=== PATIENT | male | born 1955 | race Caucasian/White ===

== ENCOUNTER 2020-05-20 16:17 | Outpatient (RCR) | payer OTHER, SELFPAY | END 2020-07-13 23:59 | LOC: IMMUN 16:17 | PROVIDERS: Referring Provider Family Medicine; Visit Provider Family Medicine | DX: Z23 Encounter for immunization (principal) | CPT/HCPCS: 0001A; 0002A; 91300 ==

== ENCOUNTER → 2023-11-01 | Outpatient (CLI) | payer OTHER, SELFPAY ==
--- NOTE | 2023-11-01 | PROSBIL_PTH ---
PATIENT: BLANCA ONEAL LOC: [facility] U#:[id number] AGE/SX: 68/M ROOM: RE11/01/[address]: Dr. Amol Cuba MD : 1955 BED: DIS: 11/01/2023 SPEC #: [id number] RECD: 11/02/23 11:44 STATUS: STEFANO REGerda #: [id number] AMY: 11/01/23 00:[address]: Amol Cuba DEPT: SURGICAL PATHOLOGY RECD BY: Esa Olmedo ENTERED: 11/02/23 11:45 SP TYPE: PROST BX OT DR: Gita Primary Care Phys Tissues: A - PROSTATE RIGHT B - PROSTATE RIGHT C - PROSTATE RIGHT D - PROSTATE LEFT E - PROSTATE LEFT F - PROSTATE LEFT Procedures: PROSTATE BX HEADER OPERATION: Prostate biopsy PRE-OP DIAGNOSIS: Elevated PSA TISSUE SUBMITTED: A - Right apex, B - Right mid, C - Right base, D - Left apex, E - Left mid, F - Left base MICROSCOPIC DIAGNOSIS A. Right prostate, apex, core biopsy: Adenocarcinoma. Seeley grade: 5+3 (8) Cores involved: 2/2 Tissue involved: 95 % Greatest tumor length: 4.5 millimeters Perineural invasion: Present B. Right prostate, mid, core biopsy: Focal atypical small acinar proliferation (ULYSSES). See comment. C. Right prostate, base, core biopsy: Glandular atrophy and mild chronic inflammation. D. Left prostate, apex, core biopsy: Adenocarcinoma. Seeley grade: 5+3 (8) Cores involved: / Tissue involved: 60% Greatest tumor length: 3.0 millimeters E. Left prostate, mid, core biopsy: Adenocarcinoma. Dwain grade: 4+3 (7) Cores involved: / Tissue involved: 85% Greatest tumor length: 6.5 millimeters Perineural invasion: Present F. Left prostate, base, core biopsy: Adenocarcinoma. Seeley grade: 4+3 (7) Cores involved: / Tissue involved: 75% Greatest tumor length: 5.2 millimeters AM. 11/05/2023 COMMENT B. Immunohistochemistry ([id number]) supports the above diagnosis. Case has been reviewed in consultation with Dr. Montes who concurs with the above diagnosis. IDC:[email or web address] MICROSCOPIC DESCRIPTION Slides are reviewed. GROSS DESCRIPTION A - Received is one container designated prostate, right apex. The specimen consists of one elongated fragments of light amanda-white soft tissue measuring 1.2 cm in length and 0.1 cm in diameter. The specimen is totally submitted in one cassette. B - Received is one container designated prostate, right mid. The specimen consists of one elongated fragments of light amanda-white soft tissue measuring 0.8 cm in length and 0.1 cm in diameter. The specimen is totally submitted in one cassette. C - Received is one container designated prostate, right base. The specimen consists of one elongated fragments of light amanda-white soft tissue measuring 0.8 cm in length and 0.1 cm in diameter. The specimen is totally submitted in one cassette. D - Received is one container designated prostate, left apex. The specimen consists of one elongated fragments of light amanda-white soft tissue measuring 1.5 cm in length and 0.1 cm in diameter. The specimen is totally submitted in one cassette. E - Received is one container designated prostate, left mid. The specimen consists of one elongated fragments of light amanda-white soft tissue measuring 0.9 cm in length and 0.1 cm in diameter. The specimen is totally submitted in one cassette. F - Received is one container designated prostate, left base. The specimen consists of one elongated fragments of light amanda-white soft tissue measuring 0.7 cm in length and 0.1 cm in diameter. The specimen is totally submitted in one cassette. / 11/02/2023 TC:0 CPT: 44808 x6
--- NOTE | 2023-11-01 | IMM_PTH ---
PATIENT: BLANCA ONEAL LOC: [facility] U#:[id number] AGE/SX: 68/M ROOM: RE11/01/[address]: Dr. Amol Cuba MD : 1955 BED: DIS: 11/01/2023 SPEC #: [id number] RECD: 11/06/23 14:34 STATUS: STEFANO REQ #: [id number] AMY: 11/01/23 00:[address]: Amol Cuba DEPT: IMMUNOHISTOCHEMISTRY RECD BY: Ryan Pope ENTERED: 11/06/23 14:35 SP TYPE: IMMUNO OTHR DR: No Primary Care Phys Tissues: B - PROSTATE RIGHT Procedures: 34BE12 (add) P40 (initial) PHYSICIAN & INSTITUTION [place] [id number] SPECIMEN INFORMATION: Tissue Source: B- Prostate mid Clinical Info: Elevated PSA Specimen Number: [id number] CPT code: 15256,44432 METHODOLOGY: Deparaffinized sections of prefer/formalin-fixed tissue or PAP/DQ stained slides are incubated with monoclonal/polyclonal antibodies/oligonucleotide probes. Localization is made via biotin free immunoperoxidase method. Appropriate controls are performed and reacted as expected. Results on target cell population are indicated in the following table: RESULTS: ANTIBODY / CLONE RESULT Block B P40 (BC28) negative 34BE12 (34BE12) negative These tests were developed and their performance characteristics determined by [facility]. They may not have been cleared or approved by the U.[place]. Food and Drug Administration. The FDA has determined that such clearance or approval is not necessary. The above immunohistochemical/dualISH markers are ordered and reviewed by the Pathologist. INTERPRETATION: BAtul Prostate, right mid, core biopsy: Atypical small acinar proliferation. AM.mr 11/07/2023
== END | disposition home or self-care (01) ==
PROVIDERS: Referring Provider Urology; Visit Provider Urology
DX: C61 Malignant neoplasm of prostate (principal); R97.20 Elevated prostate specific antigen [PSA]
CPT/HCPCS: 88305; 88341; 88342; G0416

== ENCOUNTER → 2023-11-28 | Outpatient (CLI) | payer OTHER, SELFPAY ==
--- NOTE | 2023-11-28 19:04 | CT_ITS ---
STUDY: CT ABDOMEN AND PELVIS WITH CONTRAST REASON FOR EXAM: Male, 68 years old. New diagnosis of prostate cancer. RADIATION DOSAGE (If Supplied By Facility): CTDIvol = ( 18.78 ) mGy, DLP = ( 971.30 ) mGycm TECHNIQUE: Transaxial images were obtained from the dome of the diaphragm to the symphysis pubis without oral contrast. IV 100mL Isovue-370 was administered. Sagittal and coronal images were reconstructed. Individualized dose optimization techniques were used for this CT. COMPARISON: None. FINDINGS: The visualized lung bases are unremarkable. The visualized portions of the heart are within normal limits. Normal liver. Scattered subcentimeters cysts are seen in the liver. Normal gallbladder and extrahepatic biliary system. Normal spleen. Normal pancreas. Normal bilateral adrenal glands. Normal right kidney. Normal left kidney. There is a small hiatal hernia. Normal small intestine. There are scattered colonic diverticula consistent with diverticulosis. The appendix is visualized and appears normal. Normal abdominal aorta. Normal inferior vena cava. Normal retroperitoneum. Normal urinary bladder. Heterogeneous appearance of the prostate. Small bilateral inguinal hernias containing fat slightly larger on the left side. There are mild degenerative changes of the visualized lumbar spine. CT/Abdomen/Pelvis WITH Contrast IMPRESSION: Heterogeneous appearance of the prostate. Scattered subcentimeter hepatic cysts. Sigmoid diverticulosis. Small bilateral inguinal hernias containing fat more prominent on the left side. Electronically Signed: Navid Wetzel MD at 13:59 EDT ,
[2023-11-28 19:26] LABS: CREATININE FINGERSTICK < 1.0 mg/dL (0.70-1.30); EGFR FINGERSTICK > 60.0000 mL/min (>60)
== END | disposition home or self-care (01) ==
PROVIDERS: Referring Provider Urology; Visit Provider Urology
DX: C61 Malignant neoplasm of prostate (principal)
CPT/HCPCS: 74177; Q9967

== ENCOUNTER → 2023-12-11 | Outpatient (CLI) | payer OTHER, SELFPAY ==
--- NOTE | 2023-12-11 08:47 | NM_ITS ---
CLINICAL: 68-year-old male with history of primary prostate carcinoma. WHOLE BODY 99m Tc MDP RADIONUCLIDE BONE SCINTIGRAPHY COMPARISON: Whole body bone scintigraphy study dated 11/28/2023 FINDINGS: Following the intravenous administration of 21.1 mCi of 99m Tc MDP, whole body bone images reveal: 1. Increased radiopharmaceutical concentration is defined in the acromioclavicular compartments of both shoulders, bilateral elbow and wrist articulations, right-left hands, the patellofemoral and medial tibial compartments of both knees, the fifth lumbar vertebra posteriorly on the left. 2. Enhanced tracer is identified in the right posterior third rib. 3. The remaining skeletal structures are scintigraphically unremarkable with normal-appearing renal images and urinary bladder activity identified. NM/Bone Scan Whole Body IMPRESSION: 1. The increase in radiopharmaceutical defined in the shoulders and elbows, the bilateral wrists, both hands, the knee articulations bilaterally and fifth lumbar vertebra is commensurate with degenerative arthritis. 2. Facilitated radiotracer visualized in the right posterior third rib is consistent with trauma-fracture. Plain film radiography correlation may be of benefit. 3. There is no definitive scintigraphic evidence of diffuse axial skeletal metastatic disease on the current examination. Electronically Signed: Domingo Banks DO at 7:54 EST ,
== END | disposition home or self-care (01) ==
PROVIDERS: PCP Registered Nurse; Referring Provider Urology; Visit Provider Urology
DX: C61 Malignant neoplasm of prostate (principal)
CPT/HCPCS: 78306; A9503

== ENCOUNTER → 2024-01-01 | Outpatient (CLI) | payer OTHER, SELFPAY | END | disposition home or self-care (01) | LOC: ONC 08:32 | PROVIDERS: PCP Registered Nurse; Referring Provider Urology; Visit Provider Urology | DX: C61 Malignant neoplasm of prostate (principal) | CPT/HCPCS: 78815; A9595 ==

== ENCOUNTER → 2024-03-04 | Outpatient (CLI) | payer MEDICARE, OTHER, SELFPAY ==
--- NOTE | 2024-03-04 12:18 | MRI_ITS ---
PROCEDURE: PELVIS W/WO CONTRAST REASON FOR EXAM: Recent diagnosis of prostate cancer. TECHNIQUE: Multiplanar, multisequence MRI of the prostate was performed before and following intravenous gadolinium-based contrast. Axial, coronal, and sagittal high-resolution T2-weighted images, axial T1-weighted images, diffusion-weighted images with high B value, and dynamic postcontrast fat saturated T1-weighted images were performed. CONTRAST: 17 cc Clariscan. COMPARISON: 17 cc Clariscan FINDINGS: Prostate Volume: 31.4 mL, prostate measures 5 x 4 x 3 cm Peripheral Zone: No abnormality on ADC and high b-value DWI. Diffuse heterogeneous low intensity of the peripheral zone which can be seen with prostatitis, fibrosis, or postbiopsy changes. Transitional Zone: Homogeneous low signal intensity without focal lesion, likely post biopsy change/fibrosis. Seminal vesicles: Normal and symmetric. Neurovascular bundles: Normal and symmetric. Lymph nodes: No lymphadenopathy is identified. Bone marrow: No suspicious lesions. Miscellaneous: Small fat containing inguinal hernias bilaterally. The urinary bladder is unremarkable. Moderate colonic stool suggesting constipation. MRI/Pelvis W/WO Contrast IMPRESSION: No suspicious PI-RADS 3 or greater lesion is identified. Heterogeneous low sig nal throughout the transition and peripheral zones may be related to fibrosis/post biopsy changes. No local/regional metastatic d isease identified. Reading Location: [facility]
--- NOTE | 2024-03-04 12:41 | RAD_ITS ---
PROCEDURE: ORBITS FOR FOREIGN BODY REASON FOR EXAM: Pre MRI examination for evaluation of orbital foreign bodies TECHNIQUE: 2 view(s) of the orbits. COMPARISON: None. RAD/Orbits for Foreign Body IMPRESSION: No intraorbital metal is seen. The visualized paranasal sinuses appear clear of acute disease. No acute osseous process is noted. Reading Location: [id number]
== END | disposition home or self-care (01) ==
LOC: MRI 12:16
PROVIDERS: PCP Registered Nurse; Referring Provider Student in an Organized Health Care Education/Training Program; Visit Provider Student in an Organized Health Care Education/Training Program
DX: Z01.818 Encounter for other preprocedural examination (principal); C61 Malignant neoplasm of prostate
CPT/HCPCS: 70030; 72197; A9575; A4216

== ENCOUNTER → 2024-07-23 | Outpatient (CLI) | payer MEDICARE, OTHER, SELFPAY ==
[2024-07-23 13:13] LABS: PSA,Total- Diagnostic 0.48 ng/mL (0.00-4.00)
== END | disposition home or self-care (01) ==
PROVIDERS: PCP Registered Nurse; Referring Provider Urology; Visit Provider Urology
DX: R97.20 Elevated prostate specific antigen [PSA] (principal)
CPT/HCPCS: 36415; 84153

== ENCOUNTER → 2024-10-23 | Outpatient (CLI) | payer MEDICARE, OTHER, SELFPAY ==
[2024-10-23 16:42] LABS: PSA,Total- Diagnostic 0.39 ng/mL (0.00-4.00)
== END | disposition home or self-care (01) ==
PROVIDERS: PCP Registered Nurse; Visit Provider Student in an Organized Health Care Education/Training Program
DX: C61 Malignant neoplasm of prostate (principal)
CPT/HCPCS: 36415; 84153

== ENCOUNTER → 2025-02-03 | Outpatient (CLI) | payer MEDICARE, OTHER, SELFPAY ==
[2025-02-03 15:33] LABS: PSA,Total- Diagnostic 0.51 ng/mL (0.00-4.00)
== END | disposition home or self-care (01) ==
LOC: MTLAB 11:22
PROVIDERS: PCP Registered Nurse; Referring Provider Urology; Visit Provider Urology
DX: C61 Malignant neoplasm of prostate (principal)
CPT/HCPCS: 36415; 84153